=== PATIENT | female | born 1935 | race Caucasian/White ===

== ENCOUNTER 2018-03-18 12:56 | Inpatient (IN) | payer MEDICARE, OTHER ==
[~2018-03-18] VITALS: Ht 165.1 cm; Wt 65.5 kg
[2018-03-18] MEDS ORDERED: TENORMIN 2525 MG/TAB PO (12:57)
[2018-03-18] MEDS ORDERED: K-DUR20 MEQ PO (12:57)
[2018-03-18] MEDS ORDERED: DYAZIDE 25 MG-31 CAP PO (13:00)
[2018-03-18] MEDS ORDERED: NATURAL IRON65 MG PO (13:21)
[2018-03-18] MEDS ORDERED: TYLENOL 325MG325 MG PO (13:23)
[2018-03-18] MEDS ORDERED: NATURAL E400 IU PO (13:24)
[2018-03-18] MEDS ORDERED: ACTEMRA20 MG/ML (13:25)
[2018-03-18 13:44] VITALS: BP 200/76; PULSE 35
[2018-03-18 15:00] VITALS: BP 214/120; PULSE 64; TEMP 97
[2018-03-18 16:00] VITALS: BP 215/120; PULSE 70; TEMP 97
[2018-03-18 17:28] VITALS: BP 220/87; PULSE 32; TEMP 99.2
[2018-03-18 20:00] VITALS: BP 184/90; PULSE 59; TEMP 97.8
[2018-03-19] VITALS: BP 137/64; PULSE 59; TEMP 97.4
[2018-03-19 04:00] VITALS: BP 149/79; PULSE 60; TEMP 98.2
[2018-03-19 06:12] LABS: CREATININE, serum 0.6 mg/dL (0.52-1.25); POTASSIUM 3.4 mmol/L (3.4-5.0)
[2018-03-19 08:00] VITALS: BP 156/69; PULSE 59; TEMP 97.6
[2018-03-19 11:10] VITALS: BP 138/62; PULSE 61; TEMP 98.7
[2018-03-19 15:09] VITALS: BP 145/68; PULSE 60; TEMP 98.9
[2018-03-19 21:34] VITALS: BP 130/64; PULSE 60; TEMP 98.3
[2018-03-20 00:44] VITALS: BP 151/62; PULSE 56; TEMP 98.1
[2018-03-20 04:22] VITALS: BP 162/78; BP 171/81; PULSE 60; TEMP 98.7
[2018-03-20 07:49] VITALS: BP 158/68; PULSE 69; TEMP 98
[2018-03-20] MEDS ORDERED: ALTACE 10MG TAB10 MG PO (09:54)
[2018-03-20] MEDS ORDERED: TENORMIN 5050 MG/TAB PO (09:54)
[2018-03-20] MEDS ORDERED: CEPHALEXIN500 M1 PO (09:54)
[2018-03-20] MEDS ORDERED: NORVASC 5MG5 MG/TAB PO (09:55)
== END 2018-03-20 12:59 | disposition home or self-care (01) | DRG 244 ==
LOC: ICU 12:56 → MEDICAL 03-19 10:26
PROVIDERS: Physician Assistant
PROC: 0JH606Z Insertion of Pacemaker, Dual Chamber into Chest Subcutaneous Tissue and Fascia, Open Approach (ICD-10-PCS; principal; 2018-03-18)
PROC: 02H63JZ Insertion of Pacemaker Lead into Right Atrium, Percutaneous Approach (ICD-10-PCS; 2018-03-18)
PROC: 02HK3JZ Insertion of Pacemaker Lead into Right Ventricle, Percutaneous Approach (ICD-10-PCS; 2018-03-18)
DX: I44.1 Atrioventricular block, second degree (principal); I10 Essential (primary) hypertension; M06.9 Rheumatoid arthritis, unspecified
CPT/HCPCS: 99239; C1785; C1894; C1898; J0360; J0690; J1644; J2250; J3010

== ENCOUNTER 2022-02-07 07:57 | Day surgery (SDC) | payer MEDICARE, OTHER ==
[2022-02-07] VITALS (8 sets, daily range): BP systolic 115–138; BP diastolic 57–71; PULSE 63–74; TEMP 98–98.5
[~2022-02-07] VITALS: Ht 165.2 cm; Wt 75.6 kg
[~2022-02-07 07:57] MED LIST: ACTEMRA20 MG/ML; ALTACE 10MG TAB10 MG PO; CEPHALEXIN500 M1 PO; DYAZIDE 25 MG-31 CAP PO; K-DUR20 MEQ PO; NATURAL E400 IU PO; NATURAL IRON65 MG PO; NORVASC 5MG5 MG/TAB PO; TENORMIN 2525 MG/TAB PO; TENORMIN 5050 MG/TAB PO; TYLENOL 325MG325 MG PO
[2022-02-07] MEDS ORDERED: ASPIRIN E.C. 8181 MG PO (08:10)
[2022-02-07] MEDS ORDERED: ELIQUIS 2.5 PO (08:11)
[2022-02-07] MEDS ORDERED: PROAIR HFA0.09 MG/AC IH (08:11)
[2022-02-07] MEDS ORDERED: ZOLOFT 50MG50 MG PO (08:11)
[2022-02-07] MEDS ORDERED: TIAZAC240 MG PO (08:12)
[2022-02-07] MEDS ORDERED: ZEBETA 5MG5 MG PO (08:12)
[2022-02-07] MEDS ORDERED: PREDNISONE10 MG PO (08:12)
[2022-02-07] MEDS ORDERED: ULTRAM 50MG TAB50 MG PO (08:17)
[2022-02-07] MEDS ORDERED: MIRALAX PA17 GM/Dose PO (08:18)
[2022-02-07] MEDS ORDERED: MOTRIN 400400 MG/TAB (08:20)
[2022-02-07 09:51] LABS: MEAN CELL VOLUME 83 fl (80.0-100.0); MEAN CORPUSCULAR HGB CONC 31 g/dl (33.0-37.0); MEAN PLATELET VOLUME 10.3 fl (7.4-10.4); PLATELET COUNT 421 K/mm3 (130-400); RED BLOOD COUNT 2.61 M/mm3 (4.10-5.30)
[2022-02-07 09:53] LABS: HEMATOCRIT 21.6 % (37.0-47.0); MEAN CORPUSCULAR HEMOGLOBIN 25 pg (27-31)
[2022-02-07 09:57] LABS: HEMOGLOBIN 6.6 g/dl (12.5-16.0)
[2022-02-07 10:15] LABS: CALCIUM 8.1 mg/dL (8.4-10.2); CREATININE, serum 0.7 mg/dL (0.57-1.11); MAGNESIUM 1.9 mg/dL (1.6-2.6); POTASSIUM 3.8 mmol/L (3.5-4.5)
[2022-02-07 10:37] LABS: THYROID STIMULATING HORMONE 1.649 uIU/mL (0.350-4.940)
[2022-02-07 10:43] LABS: INR 1.3 (0.8-3.0); PROTHROMBIN TIME 15.5 SECONDS (9.7-12.8)
[2022-02-07 10:45] LABS: PARTIAL THROMBOPLASTIN TIME 23.1 SECONDS (26.0-37.0)
[2022-02-07 10:46] LABS: RETIC # 0.09 M/mm3 (0.02-0.16); RETIC % 3.5 % (0.5-3.52)
--- NOTE | 2022-02-07 12:17 | NUR ---
Meal tray ordered. Blood infusion consent signed. Family steps out to get lunch. Pt denies needs at this time. Lab has drawn T&C. Call light in reach.
[2022-02-07] MEDS ORDERED: COZAAR 50MG50 MG/TAB PO (15:29)
[2022-02-07] MEDS ORDERED: DEMADEX 20MG20 M1 PO (15:30)
--- NOTE | 2022-02-07 16:07 | NUR ---
Pt assisted to toilet in room. Passes medium sized BM. Toilet has bright red blood in it following BM. Pt states she has been dealing with large bleeding hemmroids. This was known during recent hospitalization, and Dr Mitchell was aware while speaking with pt this morning. Pt has upcoming appt with a school leader in [place] next week.
--- NOTE | 2022-02-07 17:05 | NUR ---
Pt assisted out to family's truck by wheelchair. CBC results printed for pt to take to hematology appt next week. IV lasix was given following blood transfusion. Pt up to use restroom x2 with BM each time. Urine output was unmeasured but appeared to be large amount. Pitting edema continues to BLE, arms and lower torso. Lungs remain clear to ascultation. Pt does become winded with activity. Home safety discussed with pt and family. She is encouraged to monitor shortness of breath and edema closely, and to consider evaluation at local ED if either worsen. INT DC'd, site wrapped with coban.
== END 2022-02-07 17:05 | disposition home or self-care (01) ==
LOC: COL.CAR 07:57
PROVIDERS: Internal Medicine Cardiovascular Disease
DX: I48.19 Other persistent atrial fibrillation (principal); I08.0 Rheumatic disorders of both mitral and aortic valves; I10 Essential (primary) hypertension; I44.2 Atrioventricular block, complete; R06.02 Shortness of breath; Z87.891 Personal history of nicotine dependence; Z95.0 Presence of cardiac pacemaker
CPT/HCPCS: J1940; P9016

== ENCOUNTER 2022-04-10 07:56 | Day surgery (SDC) | payer MEDICARE, OTHER ==
[~2022-04-10] VITALS: Ht 165.2 cm; Wt 58.0 kg
[~2022-04-10 07:56] MED LIST changes: +ASPIRIN E.C. 8181 MG PO; +COZAAR 50MG50 MG/TAB PO; +DEMADEX 20MG20 M1 PO; +ELIQUIS 2.5 PO; +MIRALAX PA17 GM/Dose PO; +MOTRIN 400400 MG/TAB; +PREDNISONE10 MG PO; +PROAIR HFA0.09 MG/AC IH; +TIAZAC240 MG PO; +ULTRAM 50MG TAB50 MG PO; +ZEBETA 5MG5 MG PO; +ZOLOFT 50MG50 MG PO
[2022-04-10 08:17] VITALS: BP 125/78; PULSE 72; TEMP 97
[2022-04-10] MEDS ORDERED: K-TAB20 PO (08:48)
[2022-04-10] MEDS ORDERED: PROTONIX 40MG T40 MG PO (08:49)
[2022-04-10] MEDS ORDERED: ELIQUIS 2.5 PO (08:50)
[2022-04-10 08:54] LABS: HEMATOCRIT 38.2 % (37.0-47.0); HEMOGLOBIN 11.8 g/dl (12.5-16.0); MEAN CELL VOLUME 86 fl (80.0-100.0); MEAN CORPUSCULAR HEMOGLOBIN 27 pg (27-31); MEAN CORPUSCULAR HGB CONC 31 g/dl (33.0-37.0); MEAN PLATELET VOLUME 11.5 fl (7.4-10.4); PLATELET COUNT 280 K/mm3 (130-400); RED BLOOD COUNT 4.45 M/mm3 (4.10-5.30)
[2022-04-10 09:02] LABS: INR 1.2 (0.8-3.0); PROTHROMBIN TIME 14.2 SECONDS (9.7-12.8)
--- NOTE | 2022-04-10 09:02 | NUR ---
Initial visit; Patient and son thanked P[facility] [employer] for offering comfort, encouragement and prayer prior to her surgical procedure. Pipe Liner wished Dorothy well.
[2022-04-10 09:04] LABS: PARTIAL THROMBOPLASTIN TIME 31.2 SECONDS (26.0-37.0)
[2022-04-10 09:12] LABS: ANISOCYTOSIS 3+; BAND 1 % (0-10); CALCIUM 9.8 mg/dL (8.4-10.2); CREATININE, serum 1.11 mg/dL (0.57-1.11); EOSINOPHIL 1 % (0-4); HYPOCHROMIA 3+; LYMPHOCYTE 5 % (20.0-51.0); MAGNESIUM 1.8 mg/dL (1.6-2.6); NEUTROPHILS 91 % (42.0-75.2); PLATELET ESTIMATE NORMAL (NORMAL)
[2022-04-10 09:33] LABS: THYROID STIMULATING HORMONE 0.592 uIU/mL (0.350-4.940)
[2022-04-10 10:00] VITALS: BP 116/72; PULSE 79
[2022-04-10] MEDS ORDERED: PACERONE200 MG PO (10:00)
--- NOTE | 2022-04-10 10:00 | NUR ---
REPORT FROM [facility], PT HAD BOLUS INFUSED OF AMARIODONE BY PUNCHER, NEW ORDER FOR ELIQAS TO BE GIVEN TODAY, CONFIRMED WITH DR ONTIVEROS TO BE 5MG PO. PT IS AWAKE AND ALERT, TALKS WITH SON, TAKES SNACK
[2022-04-10 10:15] VITALS: BP 105/68; PULSE 98
[2022-04-10 10:30] VITALS: BP 115/74; PULSE 99
--- NOTE | 2022-04-10 10:45 | NUR ---
EKG DONE, PT UP TO B/R TO VOID, HAD SOFT STOOL BROWN, BUT ALSO HAD BLOOD IN TOILET, PT STATES HAS HAD HEMRRHOIDS LATEL, WEARS ATTENDS FOR THIS, REVIEWED DISCHARGE INST. WITH PT ON MODERATE SEDATION PRECAUTIONS, FOLLOWUP AND PT TO TAKE AMARIDRONE 200MG BID BEFORE, AND WILL TAKE ELIQUIS TONIGHT SINCE HAD DOSE IN HOSPITAL. IV D'CD PT UP AND DRESSED
--- NOTE | 2022-04-10 10:55 | NUR ---
DR GALARZA INTO SEE PT BEFORE DISCHARGE, AND WILL FOLLOW PT WITH NEXT APPT. PT DISCHARGED VIA W/C TO CAR WITH SON
== END 2022-04-10 10:55 | disposition home or self-care (01) ==
LOC: COL.CAR 07:56
PROVIDERS: Internal Medicine Cardiovascular Disease
DX: I48.0 Paroxysmal atrial fibrillation (principal)
CPT/HCPCS: J0282; J2704; J7060; J7120